=== PATIENT | female | born 1995 | race Caucasian/White ===

== ENCOUNTER 2020-12-20 10:48 | Inpatient (IN) | payer OTHER ==
[~2020-12-20] VITALS: Ht 147.3 cm; Wt 59.0 kg
[2020-12-20] MEDS ORDERED: PEPCID20 MG PO (11:03)
[2020-12-20] MEDS ORDERED: ZOLOFT50 MG PO (11:03)
== END 2020-12-27 19:06 | disposition home or self-care (01) | DRG 812 ==
LOC: ER 10:48 → SURH 20:30 → SEC-K 20:30 → SURH 12-21 20:25
PROVIDERS: ADMIT Specialist; ATTEND Specialist
PROC: 30233N1 Transfusion of Nonautologous Red Blood Cells into Peripheral Vein, Percutaneous Approach (ICD-10-PCS; principal; 2020-12-20)
PROC: BW40ZZZ Ultrasonography of Abdomen (ICD-10-PCS; 2020-12-21)
PROC: B030YZZ Magnetic Resonance Imaging (MRI) of Brain using Other Contrast (ICD-10-PCS; 2020-12-22)
DX: D58.9 Hereditary hemolytic anemia, unspecified (principal); R17 Unspecified jaundice; E83.01 Wilson's disease; Z20.822 Contact with and (suspected) exposure to COVID-19; F41.8 Other specified anxiety disorders
CPT/HCPCS: 70552